=== PATIENT | female | born 1950 | race Caucasian/White ===

== ENCOUNTER → 2017-07-16 | Outpatient (CLI) | payer MEDICARE, OTHER ==
[~2017-07-16] MED LIST: CEPH500 PO; HYDR1TAB94 PO
== END | disposition home or self-care (01) ==
LOC: LAB SHORT 14:25 → PLD 14:25
DX: D22.72 Melanocytic nevi of left lower limb, including hip (principal)
CPT/HCPCS: 88305

== ENCOUNTER → 2021-04-30 | Outpatient (CLI) | payer MEDICARE, OTHER ==
[~2021-04-30] MED LIST changes: +CHOL10002 PO
[2021-04-30 13:45] LABS: Appearance, Urine Clear (Clear); Bilirubin, Urine Neg (Neg); Color, Urine Yellow (P-Yellow); Glucose Qualitative, Urine Neg (Normal); Ketones, Urine Neg (Neg); Leukocyte Esterase, Urine Neg (Neg); Nitrite, Urine Neg (Neg); Protein, Urine Neg (Neg); Source, Urine Clean Catch; Urobilinogen, Urine NORM (Normal)
[2021-04-30 13:46] LABS: Blood, Urine Neg (Neg)
[2021-04-30 16:19] LABS: Source, Urine Clean Catch; White Blood Cells, Urine Rare /hpf (0-5)
[2021-04-30 16:20] LABS: Hyaline Casts 25-50 /lpf (0-2); Mucus Mod (0-Heavy); Red Blood Cells, Urine Rare /hpf (0-2); Squamous Epithelial Cells Rare /hpf (Few)
[2021-04-30 16:22] LABS: Bacteria Not Seen /hpf
== END ==
LOC: LAB SHORT 16:16
PROVIDERS: Family Medicine
DX: N39.0 Urinary tract infection, site not specified (principal)
CPT/HCPCS: 81003; 81015

== ENCOUNTER 2022-08-04 11:31 | Day surgery (SDC) | payer MEDICARE, OTHER ==
[~2022-08-04] VITALS: Ht 167.6 cm; Wt 86.2 kg
[2022-08-04 14:03] VITALS: BP 121/78
== END 2022-08-04 13:53 | disposition home or self-care (01) ==
LOC: ORSCSDS 11:31
PROVIDERS: Internal Medicine Gastroenterology
PROC: 0DJD8ZZ Inspection of Lower Intestinal Tract, Via Natural or Artificial Opening Endoscopic (ICD-10-PCS; principal; 2022-08-04 12:45)
DX: Z12.11 Encounter for screening for malignant neoplasm of colon (principal); Z86.010 Personal history of colon polyps; K57.30 Diverticulosis of large intestine without perforation or abscess without bleeding
CPT/HCPCS: J2704; J7120

== ENCOUNTER → 2022-10-15 | Outpatient (CLI) | payer MEDICARE | LOC: LAB SHORT 09:00 → PLD 09:00 | DX: L57.0 Actinic keratosis (principal) | CPT/HCPCS: 88305 ==

== ENCOUNTER 2023-03-03 11:33 | Day surgery (SDC) | payer MEDICARE, OTHER ==
[~2023-03-03] VITALS: Ht 167.6 cm; Wt 81.3 kg
[2023-03-03] MEDS ORDERED: VITAMIN D310 MC4 (11:51)
[2023-03-03] MEDS ORDERED: CRANBERRY125 MG (11:51)
[2023-03-03 14:05] VITALS: BP 130/94
--- NOTE | 2023-03-03 14:07 | NUR ---
03/03/23 1407 Jennifer Ellsworth IV, DC'Raudel WNL
== END 2023-03-03 14:00 | disposition home or self-care (01) ==
LOC: ORSCSDS 11:33
DX: K21.9 Gastro-esophageal reflux disease without esophagitis (principal); K44.9 Diaphragmatic hernia without obstruction or gangrene; K22.2 Esophageal obstruction; R13.10 Dysphagia, unspecified; I12.9 Hypertensive chronic kidney disease with stage 1 through stage 4 chronic kidney disease, or unspecified chronic kidney disease; N18.30 Chronic kidney disease, stage 3 unspecified; E78.5 Hyperlipidemia, unspecified; D50.9 Iron deficiency anemia, unspecified
CPT/HCPCS: 88305; 88341; 88342; C1726; J2704; J7120

== ENCOUNTER 2023-04-14 09:09 | Observation (INO) | payer MEDICARE, OTHER ==
[2023-04-14] VITALS (21 sets, daily range): BP systolic 144–189; BP diastolic 58–103
[~2023-04-14] VITALS: Ht 167.6 cm; Wt 82.8 kg
[~2023-04-14 09:09] MED LIST changes: +CRANBERRY125 MG; +VITAMIN D310 MC4
--- NOTE | 2023-04-14 09:25 | NUR ---
PT TO DAY SURGERY FOR ROBOTIC LAP PARAESOPHAGEAL HERNIA REPAIR. PLAN OF CARE DISCUSSED, QUESTIONS ANSWERED. PT HAS FRIEND AT BEDSIDE WHO WILL BE HER RIDE HOME UPON DISCHARGE.
--- NOTE | 2023-04-14 17:19 | NUR ---
SHIFT SUMMARY PATIENT IS POD0 FUNDIPLOCATION, X4 LAP SITES NIR, C/D/I. PATIENT IS UP TO BATHROOM SBA, VOIDING, DENIES PASSING GAS. TOLERATING SIPS OF CLEAR LIQ. REPORTS MILD PAIN, DENIES NEED FOR PAIN MEDICATION AT THIS TIME. VSS, ORIENTED TO ROOM AND CALL LIGHT. WILL REPORT TO WATERPROOFING SUPERVISOR RN.
[2023-04-15] VITALS: BP 145/52
[2023-04-15 04:13] VITALS: BP 163/91
--- NOTE | 2023-04-15 04:36 | NUR ---
SHIFT SUMMARY POD1 FUNDIPLICATION. LAP SITES ARE C/D/I. VSS, HTN AND TACHYCARDIA NOTED PER TREND. PT REMAINS ASYMPTOMATIC. PT SLEPT ON AND OFF T/O THE NIGHT. MEDICATED FOR PAIN WITH TORADOL AND TYLENOL ONCE, PT OTHERWISE REPORTS MINMAL PAIN. DESCRIBES FEELING UNCOMFORTABLE BUT TOLLERABLE. PT PASSING FLATTUS, BELCHING, AND VOIDING W/O DIFFICULTY. NO BM NOTED. TOLLERATING PO INTAKE W/O N/V. PT AMBULATING IN ROOM INDEPENDENTLY AND AMBULATED IN HALLWAY WITH STAFF. NO ACUTE EVENTS NOTED T/O THE NIGHT.
[2023-04-15 04:56] LABS: BASOPHILS ABSOLUTE AUTO 0.01 K/mm3 (0.00-0.23); BASOPHILS PERCENT AUTO 0 % (0-2); EOSINOPHILS PERCENT AUTO 0 % (0-6); Hemoglobin 11.5 g/dL (11.5-16.0); IMMATURE GRAN ABSOLUTE AUTO 0.04 K/mm3 (0.00-0.10); IMMATURE GRAN PERCENT AUTO 0 % (0-1); LYMPHOCYTES ABSOLUTE AUTO 1.07 K/mm3 (0.84-5.20); LYMPHOCYTES PERCENT AUTO 9 % (21-46); MONOCYTES ABSOLUTE AUTO 0.38 K/mm3 (0.16-1.47); MONOCYTES PERCENT AUTO 3 % (4-13); Mean Corpuscular HGB 25.6 pg (26.0-34.0); Mean Corpuscular HGB Conc 31.9 g/dL (31.5-36.5); Mean Corpuscular Volume 80 fL (80-100); Mean Platelet Volume 9.7 fL (9.1-12.4); NEUTROPHILS ABSOLUTE AUTO 10.41 K/mm3 (1.96-9.15); NEUTROPHILS PERCENT AUTO 87 % (41-73); Platelet Count 413 K/mm3 (150-400); RDW Coefficient Variation 15.7 % (11.7-14.2); RDW Standard Deviation 45.4 fL (35.1-46.3); White Blood Cell Count 11.91 K/mm3 (4.00-11.30)
[2023-04-15 05:13] LABS: Bun/Creatinine Ratio 23.9 (12.0-20.0); Calcium, Blood 8.9 mg/dL (8.5-10.1); Creatinine, Blood 0.75 mg/dL (0.40-1.00); Potassium, Blood 4.2 mmol/L (3.5-5.5)
[2023-04-15 07:10] VITALS: BP 149/82
--- NOTE | 2023-04-15 12:38 | NUR ---
DISCHARGE PATIENT TOLERATES PO INTAKE. VOIDING AND PASSING GAS. DENIES N/V. REPORTS MILD DISCOMFORT BUT DENIES NEED FOR PAIN MEDICATION. PATIENT IS DISCHARGED HOME VIA PRIVATE VEHICLE. IV TAKEN OUT W/O COMPLICATIONS.
== END 2023-04-15 12:30 | disposition home or self-care (01) ==
LOC: ORSCMMR 09:09 → MEDS 10:29 → ORSCMMR 10:29 → SURS 10:29 → ORSCMMR 10:29 → MEDS 10:29 → ORD 10:30 → ORSCMMR 10:30 → SURS 15:39
PROVIDERS: ADMIT Surgery
PROC: 0BQT3ZZ Repair Diaphragm, Percutaneous Approach (ICD-10-PCS; principal; 2023-04-14 10:30)
DX: K44.9 Diaphragmatic hernia without obstruction or gangrene (principal); K21.9 Gastro-esophageal reflux disease without esophagitis; Z79.899 Other long term (current) drug therapy
CPT/HCPCS: 36415; 80048; 83735; 85025; A9270; J1100; J1885; J2405; J2704; J3010; J7120